=== PATIENT | female | born 1945 | race Caucasian/White ===

== ENCOUNTER 2019-09-25 15:43 | Emergency (ER) | payer MEDICARE, SELFPAY ==
[2019-09-25 15:50] VITALS: BP 162/75; PULSE 73; RESP 16; TEMP 37.4; O2SAT 98
--- NOTE | 2019-09-25 15:58 | ED.SKABFB ---
HPI - Skin/Abscess/Foreign Bdy General Chief complaint: Skin/Abscess/Foreign Body Stated complaint: bump on side of head Time Seen by Provider: 09/25/19 15:58 Source: patient and RN notes reviewed History of Present Illness HPI narrative: Patient is a 73-year-old female who presents the urgent care with complaints of an abscess to the head. Patient states is been there for a couple days and had been draining which is now developed a scab. Patient states that she has had issues with these in the past. Denies of any fever, nausea, vomiting. No other acute complaints. Denies of any known injury to the area that caused the abscess. No acute distress noted. Patient aware of the plan of care. Related Data Home Medications Medication Instructions Recorded Confirmed hydrochlorothiazide 25 mg PO DAILY 09/25/19 09/25/19 lisinopril 40 mg PO DAILY 09/25/19 09/25/19 metoprolol succinate 100 mg PO DAILY 09/25/19 09/25/19 simvastatin 40 mg PO DAILY 09/25/19 09/25/19 Allergies Allergy/AdvReac Type Severity Reaction Status Date / Time Sulfa (Sulfonamide Allergy Unknown RASH Verified 09/25/19 15:51 Antibiotics) Review of Systems Review of Systems: Narrative: CONSTITUTIONAL: Denies fever, chills, or sweats. EYES: Denies visual changes, redness, or discharge. ENT: Denies rhinorrhea, congestion, sore throat, or otalgia. CARDIOVASCULAR: Denies chest pain, palpitations, or edema. RESPIRATORY: Denies cough or dyspnea. GASTROINTESTINAL: Denies abdominal pain, nausea, vomiting, or diarrhea. GENITOURINARY: Denies dysuria or hematuria. SKIN: Reports of a abscess to right side of the head MUSCULOSKELETAL: Denies back pain, joint pain, or myalgia. NEUROLOGIC: Denies headache, numbness, or weakness. All other systems reviewed are negative, except as documented in HPI. PMFSH Comments At the time of my signature, I reviewed and agree with the nursing past medical, surgical, social, and family history. There is no relevant family history pertinent to the patient complaint. Exam Narrative: Exam Narrative: GENERAL: This is a well-nourished, well-developed patient, in no apparent distress. HEAD: normocephalic, atraumatic. EYES: PERRL. Sclera clear/white. Vision is grossly intact. EARS: External ears normal NOSE: External nose normal with no obvious nasal discharge, nares without redness, no rhinorrhea. THROAT: Mucous membranes moist NECK: Neck supple SKIN: 2 x 2 centimeter erythemic draining abscess with scab at center to the right upper scalp NEURO: awake, alert, and oriented to person, place and time. There were no obvious focal neurologic abnormalities. EXTREMITIES: No clubbing, cyanosis, or edema. Course Vital Signs Vital signs: Vital Signs Temperature 99.4 F 09/25/19 15:50 Pulse Rate 73 09/25/19 15:50 Respiratory Rate 16 09/25/19 15:50 Blood Pressure 162/75 H 09/25/19 15:50 Pulse Oximetry 98 09/25/19 15:50 Temperature 99.4 F 09/25/19 15:50 Pulse Rate 73 09/25/19 15:50 Respiratory Rate 16 09/25/19 15:50 Blood Pressure 162/75 H 09/25/19 15:50 Pulse Oximetry 98 09/25/19 15:50 Reviewed?patient is informed that they may have pre-hypertension or hypertension based on a blood pressure reading in the department. I recommend the patient call the primary care provider listed on their discharge instructions or a physician of their choice this week to arrange follow-up for further evaluation of possible pre-hypertension or hypertension. MDM - Skin/Abscess/Foreign Bdy MDM Narrative Medical decision making narrative: Advised the patient not to pick or squeeze on the area. Continue to clean as normal with plain soap and water. It may use Neosporin to the area as needed. Complete oral antibiotic regimen as prescribed. Make sure to eat and drink with the medication to avoid nausea. If you develop any increase in tenderness, swelling, drainage associated with fever?go to the emergency room. Follow-up with your PCP wit
== END 2019-09-25 16:09 | disposition home or self-care (01) ==
PROVIDERS: Emergency Provider Nurse Practitioner Family
DX: L02.811 Cutaneous abscess of head [any part, except face] (principal); E78.00 Pure hypercholesterolemia, unspecified; E78.5 Hyperlipidemia, unspecified
CPT/HCPCS: 99213; G0463

== ENCOUNTER 2020-08-14 13:49 | Emergency (ER) | payer MEDICARE, SELFPAY ==
[2020-08-14 13:54] VITALS: BP 187/77; PULSE 64; RESP 16; TEMP 36.8; O2SAT 99
--- NOTE | 2020-08-14 14:21 | ED.GENADULT ---
HPI - General Adult General Chief complaint: Back Pain/Injury Stated complaint: Back pain and blisters on stomach Time Seen by Provider: 08/14/20 14:21 Source: patient and RN notes reviewed Mode of arrival: ambulatory Limitations: no limitations History of Present Illness HPI narrative: 74-year-old female presents concern for painful rash to her right torso.. Reports pain started approximately 1 week ago, then the rash appeared approximately 4 days ago. Reports pain is worse at night. Reports she has been taking Tylenol with mild relief. She denies any other rash, fever, malaise, body aches. She has not had a shingles vaccine. MD complaint: Rash Related Data Home Medications Medication Instructions Recorded Confirmed hydrochlorothiazide 25 mg PO DAILY 09/25/19 08/14/20 lisinopril 40 mg PO DAILY 09/25/19 08/14/20 metoprolol succinate 100 mg PO DAILY 09/25/19 08/14/20 simvastatin 40 mg PO DAILY 09/25/19 08/14/20 Allergies Allergy/AdvReac Type Severity Reaction Status Date / Time Sulfa (Sulfonamide Allergy Unknown RASH Verified 08/14/20 14:13 Antibiotics) Review of Systems Review of Systems: Narrative: CONSTITUTIONAL: Denies malaise, chills, sweats, or fever. ENT: Denies rhinorrhea, congestion, sinus pain, otalgia or sore throat. CARDIOVASCULAR: Denies chest pain, palpitations, or edema. RESPIRATORY: Denies cough or dyspnea. GASTROINTESTINAL: Denies abdominal pain, nausea, vomiting, diarrhea SKIN: Reports painful rash to the right torso MUSCULOSKELETAL: Denies myalgia. NEUROLOGIC: Denies numbness, weakness, or headache. All systems reviewed & are unremarkable except as noted in HPI and below PMFSH Comments At time of signature, agree with nursing past medical, surgical, social and family history. There is no relevant family history pertinent to the presenting complaint Exam Narrative: Exam Narrative: GENERAL: Well-appearing, well-nourished, and in no acute distress. HEAD: Normocephalic, atraumatic. EYES: PERRLA, conjunctivae clear, and EOMI. ENT: Mucous membranes moist. Oropharynx without edema, erythema or lesions. NECK: Supple. No lymphadenopathy CHEST: Clear to auscultation. No respiratory distress. HEART: Regular rate and rhythm. SKIN: Warm, dry. Zosteriform rash starting under the right breast extending to the right upper back under the axilla NEURO: Alert and oriented x3. PSYCH: Normal mood and affect Course Course Emergency Course: Patient is aware of diagnosis, understands and agrees to treatment plan. Anticipatory guidance given. Patient agrees to follow-up as directed and is aware of reasons to seek care at the emergency department. Portions of this record may have been created with voice recognition software Vital Signs Vital signs: Vital Signs Temperature 98.3 F 08/14/20 13:54 Pulse Rate 64 08/14/20 13:54 Respiratory Rate 16 08/14/20 13:54 Blood Pressure 187/77 H 08/14/20 13:54 Pulse Oximetry 99 08/14/20 13:54 Temperature 98.3 F 08/14/20 13:54 Pulse Rate 64 08/14/20 13:54 Respiratory Rate 16 08/14/20 13:54 Blood Pressure 187/77 H 08/14/20 13:54 Pulse Oximetry 99 08/14/20 13:54 Reviewed. Medical Decision Making MDM Narrative Medical decision making narrative: Does not appear at this time to be erythema multiforme, bullous, SJS, TEN; no evidence at this time to suggest RMSF, endocarditis or Lyme disease; patient looks well, nontoxic and is tolerating oral intake; no neurologic signs or symptoms; no headache, photophobia or neck pain; afebrile; appropriate for initial outpatient treatment; discussed the importance of follow-up, patient agrees; question, viral exanthema, contact dermatitis, allergic dermatitis, eczema, urticaria, shingles. No soft palate or uvula edema, no tongue, lip edema or other mucosal involvement, no respiratory compromise, no stridor, no wheezing, no wheezing, no history of syncope, no hypotension, no nausea, vomiting, or diarrhea.
== END 2020-08-14 14:32 | disposition home or self-care (01) ==
PROVIDERS: Emergency Provider Nurse Practitioner
DX: B02.9 Zoster without complications (principal); E78.00 Pure hypercholesterolemia, unspecified; I10 Essential (primary) hypertension
CPT/HCPCS: 99213; G0463

== ENCOUNTER 2020-11-05 13:58 | Emergency (ER) | payer MEDICARE, SELFPAY ==
--- NOTE | ~2020-11-05 | XR_ITS ---
EXAMINATION: XR ankle RT min 3V INDICATION: Right ankle pain and swelling TECHNIQUE: Four views of the right ankle are obtained. COMPARISON: None available FINDINGS: Bone alignment is normal. There is no fracture. There is mild osteoarthritis. The soft tiss ues are unremarkable. A plantar calcaneal enthesophyte is noted. IMPRESSION: 1. No acute osseous abnormality. Reviewed, dictated and finalized at location B.
[2020-11-05 15:06] VITALS: BP 162/72; PULSE 76; RESP 20; TEMP 36.7; O2SAT 100
--- NOTE | 2020-11-05 15:56 | ED.LOWEXIN ---
HPI - Extremity Injury (Lower) General Chief Complaint: Extremity Injury, Lower Stated Complaint: right ankle swelling Time Seen by Provider: 11/05/20 15:59 Source: patient Mode of arrival: ambulatory Limitations: no limitations History of Present Illness HPI Narrative: 74 year old [facility] complaints of stepping off of a curb on 11/01/3030 and rolled her right ankle and foot. She states discomfort to the lateral right ankle and right foot with some swelling and increased pain with ambulation. Patient reports that she has an aching discomfort to her right foot and ankle especially with weight bearing has been taking Tylenol for her discomfort. MD complaint: ankle injury and foot injury Related Data Home Medications Medication Instructions Recorded Confirmed hydrochlorothiazide 25 mg PO DAILY 09/25/19 11/05/20 lisinopril 40 mg PO DAILY 09/25/19 11/05/20 metoprolol succinate 100 mg PO DAILY 09/25/19 11/05/20 simvastatin 40 mg PO DAILY 09/25/19 11/05/20 Allergies Allergy/AdvReac Type Severity Reaction Status Date / Time Sulfa (Sulfonamide Allergy Unknown RASH Verified 11/05/20 15:13 Antibiotics) Review of Systems Review of Systems: CONSTITUTIONAL: Denies fever, chills, or sweats. EYES: Denies visual changes, redness, or discharge. ENT: Denies rhinorrhea, congestion, sore throat, or otalgia. CARDIOVASCULAR: Denies chest pain, palpitations, or edema. RESPIRATORY: Denies cough or dyspnea. GASTROINTESTINAL: Denies abdominal pain, nausea, vomiting, or diarrhea. GENITOURINARY: Denies dysuria or hematuria. SKIN: Denies rash or itching. MUSCULOSKELETAL: Denies back pain,positive for right ankle and foot pain, or myalgia. NEUROLOGIC: Denies headache, numbness, or weakness. PSYCHIATRIC: Denies anxiety or depression. 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 There is no relevant family history pertinent to the presenting complaint Exam Narrative: GENERAL: Well-appearing, well-nourished, and in no acute distress. HEAD: Normocephalic, atraumatic. EYES: PERRLA and EOMI. ENT: Nares clear, no rhinorrhea or epistaxis. Mucous membranes moist. NECK: Supple. no lymphadenopathy CHEST: Clear to auscultation. No respiratory distress.SAO2 100% on room air HEART: Regular rate and rhythm. No murmur heard. Normal peripheral pulses. ABDOMEN: Soft, nontender, nondistended, normal active bowel sounds. EXTREMITIES: Normal range of motion. No edema with exception to right lateral ankle and foot which has small amount of swelling with pain with movement, circulation and sensation intact. SKIN: Warm, dry, no rash. NEURO: No focal deficits. Alert and oriented x3. Course Vital Signs Vital signs: Vital Signs Temperature 36.7 C 11/05/20 15:06 Pulse Rate 76 11/05/20 15:06 Respiratory Rate 11/05/20 15:06 Blood Pressure 162/72 H 11/05/20 15:06 Pulse Oximetry 100 11/05/20 15:06 Temperature 36.7 C 11/05/20 15:06 Pulse Rate 76 11/05/20 15:06 Respiratory Rate 11/05/20 15:06 Blood Pressure 162/72 H 11/05/20 15:06 Pulse Oximetry 100 11/05/20 15:06 MDM - Extremity Injury (Low
== END 2020-11-05 16:32 | disposition home or self-care (01) ==
PROVIDERS: Emergency Provider Registered Nurse
DX: S93.401A Sprain of unspecified ligament of right ankle, initial encounter (principal); S96.911A Strain of unspecified muscle and tendon at ankle and foot level, right foot, initial encounter; X50.9XXA Other and unspecified overexertion or strenuous movements or postures, initial encounter; E78.00 Pure hypercholesterolemia, unspecified; I10 Essential (primary) hypertension; Z87.891 Personal history of nicotine dependence
CPT/HCPCS: 73610; 99213; G0463

== ENCOUNTER 2021-08-01 16:42 | Emergency (ER) | payer MEDICARE, SELFPAY ==
--- NOTE | 2021-08-01 16:47 | ED.SKABFB ---
HPI - Skin/Abscess/Foreign Bdy General Chief complaint: Skin/Abscess/Foreign Body Stated complaint: knot on back of neck Time Seen by Provider: 08/01/21 16:48 Source: patient and RN notes reviewed History of Present Illness HPI narrative: Patient is a 75-year-old female who presents the urgent care with complaints of a knot on the back of her head. Patient states that she has had in the past after getting a haircut. Patient states that she had a haircut 2 days ago and noticed a large bump shortly thereafter. Patient states she believes it has been draining and she has been using Neosporin. Patient denies any fevers, nausea or vomiting. No other acute complaints. No acute distress noted. Patient aware of the plan of care. Some parts of this dictation were generated by voice recognition software and may contain typographical and/or grammatical inaccuracies. Related Data Home Medications Medication Instructions Recorded Confirmed hydrochlorothiazide 25 mg tablet 25 mg PO DAILY 09/25/19 11/05/20 lisinopril 40 mg tablet 40 mg PO DAILY 09/25/19 11/05/20 metoprolol succinate 100 mg 100 mg PO DAILY 09/25/19 11/05/20 tablet,extended release 24 hr simvastatin 40 mg tablet 40 mg PO DAILY 09/25/19 11/05/20 Allergies Allergy/AdvReac Type Severity Reaction Status Date / Time Sulfa (Sulfonamide Allergy Unknown RASH Verified 11/05/20 15:13 Antibiotics) Review of Systems Review of Systems: CONSTITUTIONAL: Denies fever, chills, or sweats. EYES: Denies visual changes, redness, or discharge. ENT: Denies rhinorrhea, congestion, sore throat, or otalgia. CARDIOVASCULAR: Denies chest pain, palpitations, or edema. RESPIRATORY: Denies cough or dyspnea. GASTROINTESTINAL: Denies abdominal pain, nausea, vomiting, or diarrhea. GENITOURINARY: Denies dysuria or hematuria. SKIN: Reports of a large painful lump on the back of the head MUSCULOSKELETAL: Denies back pain, joint pain, or myalgia. NEUROLOGIC: Denies headache, numbness, or weakness. All other systems reviewed are negative, except as documented in HPI. 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 There is no relevant family history pertinent to the patient complaint. Exam Narrative: GENERAL: This is a well-nourished, well-developed patient, in no apparent distress. HEAD: normocephalic, atraumatic. EYES: PERRL. Sclera clear/white. Vision is grossly intact. EARS: External ears normal NOSE: External nose normal with no obvious nasal discharge, nares without redness, no rhinorrhea. THROAT: Mucous membranes moist NECK: Neck supple CARDIOVASCULAR: Regular rate and rhythm without murmurs, gallops, or rubs. RESPIRATORY: Clear to auscultation. Breath sounds equal bilaterally. No wheezes, rales, or rhonchi. SKIN: 4 x 4 centimeter folliculitis edematous and erythemic to the right occipital region. warm, intact with no suspicious lesions or rash, good texture and turgor. NEURO: awake, alert, and oriented to person, place and time. There were no obvious focal neurologic abnormalities. EXTREMITIES: No clubbing, cyanosis, or edema. Course Course Level of Care: Express Care Visit Vital Signs Vital signs: Vital Signs Temperature 99.1 F 08/01/21 16:49 P
[2021-08-01 16:49] VITALS: BP 174/79; PULSE 84; RESP 16; TEMP 37.3; O2SAT 99
== END 2021-08-01 17:15 | disposition home or self-care (01) ==
PROVIDERS: Emergency Provider Nurse Practitioner Family
DX: L73.9 Follicular disorder, unspecified (principal); Z87.891 Personal history of nicotine dependence; E78.00 Pure hypercholesterolemia, unspecified; I10 Essential (primary) hypertension
CPT/HCPCS: 99213; G0463

== ENCOUNTER 2021-09-30 17:21 | Emergency (ER) | payer MEDICARE, SELFPAY ==
[2021-09-30 17:50] VITALS: BP 144/72; PULSE 64; RESP 16; TEMP 36.5; O2SAT 100
--- NOTE | 2021-09-30 18:24 | ED.GENADULT ---
HPI - General Adult General Chief complaint: Urogenital-Female Stated complaint: Frequent urination, burning sensation Source: patient Mode of arrival: ambulatory Limitations: no limitations History of Present Illness HPI narrative: Patient presents for evaluation of urinary symptoms for the last two days. Symptoms include dysuria and urinary frequency. She denies any fever, chills, nausea, vomiting, abdominal pain, hematuria, hesitancy. She has had similar symptoms in the past with urinary tract infection. She is not taking medication for her symptoms. No additional complaints or concerns. Related Data Home Medications Medication Instructions Recorded Confirmed hydrochlorothiazide 25 mg tablet 25 mg PO DAILY 09/25/19 09/30/21 lisinopril 40 mg tablet 40 mg PO DAILY 09/25/19 09/30/21 metoprolol succinate 100 mg 100 mg PO DAILY 09/25/19 09/30/21 tablet,extended release 24 hr simvastatin 40 mg tablet 40 mg PO DAILY 09/25/19 09/30/21 Allergies Allergy/AdvReac Type Severity Reaction Status Date / Time Sulfa (Sulfonamide Allergy Unknown RASH Verified 11/05/20 15:13 Antibiotics) Review of Systems Review of Systems: CONSTITUTIONAL: Denies fever, chills, or sweats. EYES: Denies visual changes, redness, or discharge. ENT: Denies rhinorrhea, congestion, sore throat, or otalgia. CARDIOVASCULAR: Denies chest pain, palpitations, or edema. RESPIRATORY: Denies cough or dyspnea. GASTROINTESTINAL: Denies abdominal pain, nausea, vomiting, or diarrhea. GENITOURINARY: Reports dysuria and urinary frequency. Denies hesitancy, urgency, hematuria SKIN: Denies rash or itching. MUSCULOSKELETAL: Denies back pain, joint pain, or myalgia. NEUROLOGIC: Denies headache, numbness, dizziness, or weakness. PSYCHIATRIC: Denies anxiety or depression. 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 Shingles Surgical History Surgical History No pertinent past surgical history Family History Family History Mother Family history non-contributory Other No significant family history Social History Social History Smoking packs per day: 0.5 Smoking cigarettes per day: 10.0 Years smoked: 30 Smoking pack-years: 15.00 Smoking status: Former smoker Alcohol intake: never Substance use: never Living arrangements: alone Gender identity (if verbalized by the patient): Female Sexual Orientation (if Verbalized by the Patient): Straight or Heterosexual Exam Narrative: GENERAL: Well-appearing, well-nourished, and in no acute distress. HEAD: Normocephalic, atraumatic. EYES: PERRLA and EOMI. ENT: Nares clear, no rhinorrhea or epistaxis. Mucous membranes moist. Oropharynx without tonsillar hypertrophy exudate or other lesions. Bilateral TMs pearly vila nonbulging NECK: Supple. No adenopathy or masses. No carotid bruits or JVD CHEST: Clear to auscultation. No respiratory distress. No wheezes rales or rhonchi HEART: Regular rate and rhythm. No murmur heard. Normal peripheral pulses. ABDOMEN: Soft, nontender, nondistended, normal active bowel sounds. EXTREMITIES: Normal range of motion. No edema. BACK: No CVA tenderness SKIN: Warm, dry, no rash. NEURO: No focal deficits. Alert and oriented x3. PSYCH: Normal mood and affect. Course Course Emergency Course: This is a 75-year-old female who presented for evaluation of urinary symptoms for the last 2 days. Urine leukocyte positive. Will treat with Keflex. Send urine for culture. Advised outpatient follow-up with primary care provider. Go to the ER for fever, chills, worsening symptoms. Patient is in agreement with plan of care Level of Care: Annalee Obregon
== END 2021-09-30 18:48 | disposition home or self-care (01) ==
PROVIDERS: Emergency Provider Nurse Practitioner
DX: N39.0 Urinary tract infection, site not specified (principal); Z87.891 Personal history of nicotine dependence; E78.00 Pure hypercholesterolemia, unspecified; I10 Essential (primary) hypertension
CPT/HCPCS: 81003; 87086; 87088; 99213; G0463